=== PATIENT | female | born 1945 | race Caucasian/White ===

== ENCOUNTER → 2016-03-27 | Outpatient (CLI) | payer OTHER, MEDICARE ==
--- NOTE | 2016-03-27 14:16 | DX ---
Bilateral Knees, Three Views Each. HISTORY: Pain. Difficulty with everyday activities for two months. FINDINGS: Mild joint narrowing laterally in the patellofemoral compartment bilaterally and minimal pe riarticular spurring. Minimal subarticular sclerosis in the medial and lateral compartments. No evide nce for acute fracture or dislocation. No significant joint effusion. No other significant osseous ab normality. 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
== END ==
LOC: BMCIMAGING 12:12
PROVIDERS: ATTEND Internal Medicine Rheumatology
DX: M25.561 Pain in right knee (principal); M25.562 Pain in left knee; M79.604 Pain in right leg; M79.605 Pain in left leg

== ENCOUNTER → 2016-10-21 | Outpatient (CLI) | payer OTHER, MEDICARE | LOC: BMCIMAGING 12:41 | PROVIDERS: ATTEND Registered Nurse General Practice | DX: R14.0 Abdominal distension (gaseous) (principal) ==